=== PATIENT | male | born 1995 | race Caucasian/White ===

== ENCOUNTER 2017-12-19 20:58 | Emergency (ER) | payer OTHER ==
[2017-12-19] MEDS ORDERED: IBUPROFEN 600 MG TAB PO ONE ×2 (21:27→21:28)
--- NOTE | 2017-12-19 21:30 | EDPHY ---
H & P Smoking Status: Never smoked Time Seen by Provider: 12/19/17 21:11 HPI/ROS: CHIEF COMPLAINT: Left shoulder pain HISTORY OF PRESENT ILLNESS: Patient is a 22-year-old male here with left shoulder pain after he slipped on some wet grass while running and fell on his left shoulder. Denies any numbness or weakness. He has never injured this shoulder before. Denies any neck pain or headache or loss consciousness. REVIEW OF SYSTEMS: Constitutional: No fever, no chills. Eyes: No discharge. ENT: No sore throat. Cardiovascular: No chest pain, no palpitations. Respiratory: No cough, no shortness of breath. Gastrointestinal: No abdominal pain, no vomiting. Genitourinary: No hematuria. Musculoskeletal: No back pain. Skin: No rashes. Neurological: No headache. (Steve Duran) Physical Exam: General Appearance: Alert and no distress. Eyes: Pupils equal and round no injection. Respiratory: Chest is nontender, lungs are clear to auscultation. Cardiac: regular rate and rhythm. Gastrointestinal: Abdomen is soft and nontender, no masses, bowel sounds normal. Musculoskeletal: Neck is supple and nontender. Tenderness to glenohumeral joint with obvious step-off. Facial unable to abduct or adduct or externally rotate the left arm. After reduction of the shoulder dislocation patient was found to be neurovascular intact distal to the shoulder with full dilatation to the internally externally rotate the shoulder. Extremities have full range of motion and are nontender. Skin: No rashes or lesions. (Steve Duran) Constitutional: Initial Vital Signs Temperature (C) 36.6 C 12/19/17 21:07 Heart Rate 74 12/19/17 21:07 Respiratory Rate 16 12/19/17 21:07 Blood Pressure 137/85 H 12/19/17 21:07 O2 Sat (%) 97 12/19/17 21:07 O2 Delivery Mode Room Air Allergies/Adverse Reactions: No Known Allergies Allergy (Unverified 12/19/17 21:09) Medical Decision Making Procedures: Reduction of left shoulder dislocation using in-line traction with external rotation. The joint was reduced with 1st attempt. He was found to be neurovascular intact before and after the procedure. Distal pulses were strong with full sensation. Is able to internally and externally rotate the shoulder without pain. Post reduction x-rays confirm shoulder to be in appropriate position. (Steve Duran) ED Course/Re-evaluation: The patient was evaluated and managed by the physician assistant speech language pathologist. I have reviewed this chart and I agree with the findings and plan of care as documented , as indicated by my signature. I am the secondary supervising physician. ( Davina Dumont) - Data Points Medications Given: Discontinued Medications Ibuprofen (Motrin) 600 mg PO EDNOW ONE Stop: 12/19/17 21:29 Last Admin: 12/19/17 21:29 Dose: 600 mg Departure - Departure Disposition: Home, Routine, Self-Care Clinical Impression: Shoulder dislocation Condition: Good Instructions: Ibuprofen (By mouth), Shoulder Dislocation (ED), R.I.C.E. Treatment (ED) Additional Instructions: Call Orthopedics tomorrow for follow-up early this week. Wear the sling until you follow up with Orthopedics. Referrals: NONE *PRIMARY CARE P,. [Primary Care Provider] - As per Instructions Roger Cota MD [Medical Doctor] - As per Instructions
[2017-12-19 21:31] VITALS: BP 138/78
== END 2017-12-19 21:35 | disposition home or self-care (01) ==
PROC: 0RSKXZZ Reposition Left Shoulder Joint, External Approach (ICD-10-PCS; principal; 2017-12-19)
DX: S43.015A Anterior dislocation of left humerus, initial encounter (principal); W01.0XXA Fall on same level from slipping, tripping and stumbling without subsequent striking against object, initial encounter; Y92.89 Other specified places as the place of occurrence of the external cause; Y99.8 Other external cause status; Y93.02 Activity, running
CPT/HCPCS: A4565